=== PATIENT | female | born 1945 | race Caucasian/White ===

== ENCOUNTER 2020-06-02 20:56 | Inpatient (IN) ==
[2020-06-03] MEDS ORDERED: Naloxone 0.4 MG/ML INJ IVP PRN (01:09)
[2020-06-03] MEDS: *HR* HYDROmorphone (PF) 1 MG/ML SYRINGE IVP PRN ×3 (02:09→16:23)
[2020-06-03] MEDS: Ringers Solution, Lactated 1,000 ML IVC SCH (02:13)
[2020-06-03] MEDS: Ondansetron ODT 4 MG TAB.RAPDIS SL PRN ×2 (02:13→12:57)
[2020-06-03] MEDS ORDERED: Ketorolac 30 MG/ML VIAL IVP ONE (03:09)
[2020-06-03] MEDS: *HR* OxyCODONE/APAP 7.5/325 TABLET PO PRN (04:06)
[2020-06-03 05:06] LABS: Basophils # 0.1 K/mcL (0.0-0.2); Basophils % 0.3 %; Eosinophils % 0.2 %; Hematocrit 40.3 % (35.3-44.9); Hemoglobin 12.9 g/dL (11.5-15.4); Immature Granulocytes % 0.8 % (0-4); Lymphocytes # 2.2 K/mcL (0.6-4.6); Lymphocytes % 12.2 %; Mean Corpuscular Hemoglobin 27.9 pg (28.0-33.3); Mean Corpuscular Volume 87.2 fL (83.0-100.0); Mean Platelet Volume 9.7 fL (9.4-12.4); Monocytes # 1.9 K/mcL (0.0-1.3); Monocytes % 10.5 %; Neutrophils # 13.9 K/mcL (1.6-8.9); Platelet Count 305 K/mcL (140-400); Red Blood Count 4.62 M/mcL (3.82-4.97); Red Cell Distribution Width 13.6 % (11.5-14.5); White Blood Count 18.3 K/mcL (4.3-11.1)
[2020-06-03 05:35] LABS: INR 1.2; Prothrombin Time 14.2 Seconds (9.4-12.1)
[2020-06-03 05:37] LABS: Alanine Aminotransferase 9 Units/L (7-52); Albumin 3.8 g/dL (3.5-5.7); Albumin/Globulin Ratio 1.5 (1.1-2.2); Alkaline Phosphatase 61 Units/L (34-104); Aspartate Amino Transferase 11 Units/L (13-39); BUN/Creatinine Ratio 22 (6-26); Bilirubin,Total 0.6 mg/dL (0.3-1.0); Blood Urea Nitrogen 17 mg/dL (8-23); Calcium 8.9 mg/dL (8.6-10.3); Carbon Dioxide 25 mEq/L (23-29); Chloride 100 mEq/L (98-107); Chol/HDL Ratio 4.7 (0-4.9); Cholesterol 269 mg/dL (< 200); Globulin 2.6 g/dL (2.4-3.5); Glucose 85 mg/dL (70-105); HDL Cholesterol 57 mg/dL (40-59); LDL Cholesterol,Calculated 195 mg/dL (< 100); Lipase 1713 Units/L (11-82); Magnesium 1.8 mg/dL (1.6-2.6); Osmolality,Calculated 279 (280-300); Phosphorous 3.1 mg/dL (2.7-4.5); Potassium 3.4 mEq/L (3.5-5.1); Sodium 134 mEq/L (136-145); Total Protein 6.4 g/dL (6.4-8.9); Triglycerides 85 mg/dL (< 150); eGFR For African Americans > 60 (> 60); eGFR For Non-African Americans > 60 (> 60)
[2020-06-03] MEDS ORDERED: 0.9 % Sodium Chloride 1,000 ML IVC ONE ×2 (05:48→10:23)
[2020-06-03] MEDS ORDERED: Potassium Chloride 40 MEQ, Lidocaine 1% 2 ML in 0.9 % Sodium Chloride 500 ML IVPB ONE (05:51)
[2020-06-03] MEDS: Piperacillin/Tazobactam 3.375 GM in 0.9 % Sodium Chloride Mini Bag 100 ML IVPB SCH ×2 (08:15→16:23)
[2020-06-03] MEDS: Acetaminophen 325 MG TABLET PO PRN (08:15)
[2020-06-03] MEDS: tiZANidine 4 MG TABLET PO SCH ×3 (08:16→21:47)
[2020-06-03] MEDS: DilTIAZem CD (24hr) 240 MG CAP.ER.24H PO SCH (08:54)
[2020-06-03] MEDS: Ketorolac 30 MG/ML VIAL IVP PRN ×2 (11:01→21:47)
[2020-06-03] MEDS: *HR* Heparin 5,000 UNIT/ML VIAL SQ SCH (17:57)
[2020-06-04] MEDS: *HR* OxyCODONE/APAP 7.5/325 TABLET PO PRN ×4 (00:52→20:57)
[2020-06-04] MEDS: Piperacillin/Tazobactam 3.375 GM in 0.9 % Sodium Chloride Mini Bag 100 ML IVPB SCH ×2 (00:53→08:14)
[2020-06-04] MEDS ORDERED: Hyoscyamine SL 0.125 MG TAB.SUBL SL ONE (02:19)
[2020-06-04] MEDS: Ondansetron ODT 4 MG TAB.RAPDIS SL PRN (02:33)
[2020-06-04] MEDS: *HR* Heparin 5,000 UNIT/ML VIAL SQ SCH ×2 (05:37→18:02)
[2020-06-04] MEDS: Ketorolac 30 MG/ML VIAL IVP PRN (05:37)
[2020-06-04 05:55] LABS: Basophils % 0.2 %; Eosinophils # 0.1 K/mcL (0.0-0.6); Eosinophils % 0.3 %; Hematocrit 34.8 % (35.3-44.9); Hemoglobin 11.2 g/dL (11.5-15.4); Immature Granulocytes % 0.5 % (0-4); Lymphocytes # 2.7 K/mcL (0.6-4.6); Lymphocytes % 14.1 %; Mean Corpuscular HGB Conc 32.2 g/dL (31.6-35.5); Mean Corpuscular Hemoglobin 28.6 pg (28.0-33.3); Mean Corpuscular Volume 88.8 fL (83.0-100.0); Mean Platelet Volume 9.9 fL (9.4-12.4); Monocytes # 2.5 K/mcL (0.0-1.3); Monocytes % 13.4 %; Neutrophils # 13.5 K/mcL (1.6-8.9); Platelet Count 238 K/mcL (140-400); Red Blood Count 3.92 M/mcL (3.82-4.97); Red Cell Distribution Width 13.9 % (11.5-14.5); Segmented Neutrophils % 71.5 %; White Blood Count 18.9 K/mcL (4.3-11.1)
[2020-06-04 06:13] LABS: Alanine Aminotransferase 9 Units/L (7-52); Albumin 3.6 g/dL (3.5-5.7); Albumin/Globulin Ratio 1.4 (1.1-2.2); Alkaline Phosphatase 51 Units/L (34-104); Aspartate Amino Transferase 13 Units/L (13-39); BUN/Creatinine Ratio 21 (6-26); Bilirubin,Total 0.6 mg/dL (0.3-1.0); Blood Urea Nitrogen 17 mg/dL (8-23); Calcium 8.9 mg/dL (8.6-10.3); Carbon Dioxide 25 mEq/L (23-29); Chloride 104 mEq/L (98-107); Globulin 2.5 g/dL (2.4-3.5); Glucose 86 mg/dL (70-105); Osmolality,Calculated 279 (280-300); Potassium 3.5 mEq/L (3.5-5.1); Sodium 134 mEq/L (136-145); Total Protein 6.1 g/dL (6.4-8.9); eGFR For African Americans > 60 (> 60); eGFR For Non-African Americans > 60 (> 60)
[2020-06-04] MEDS: tiZANidine 4 MG TABLET PO SCH ×3 (08:14→20:57)
[2020-06-04] MEDS: DilTIAZem CD (24hr) 240 MG CAP.ER.24H PO SCH (08:14)
[2020-06-04 08:58] LABS: Lipase 775 Units/L (11-82)
[2020-06-04] MEDS: Ringers Solution, Lactated 1,000 ML IVC SCH ×3 (09:11→19:40)
[2020-06-04] MEDS: Acetaminophen 325 MG TABLET PO PRN (22:12)
[2020-06-05] MEDS: Ondansetron ODT 4 MG TAB.RAPDIS SL PRN ×2 (01:11→09:39)
[2020-06-05] MEDS ORDERED: *HR* HYDROmorphone (PF) 1 MG/ML SYRINGE IVP ONE (01:24)
[2020-06-05 02:25] LABS: Hematocrit 30.6 % (35.3-44.9); Hemoglobin 9.8 g/dL (11.5-15.4); Immature Granulocytes % 0.5 % (0-4); Lymphocytes % 12.8 %; Mean Corpuscular Hemoglobin 28.6 pg (28.0-33.3); Mean Corpuscular Volume 89.2 fL (83.0-100.0); Mean Platelet Volume 10.2 fL (9.4-12.4); Monocytes % 12.4 %; Platelet Count 196 K/mcL (140-400); Red Blood Count 3.43 M/mcL (3.82-4.97); Red Cell Distribution Width 14.1 % (11.5-14.5); Segmented Neutrophils % 73.2 %; White Blood Count 17.9 K/mcL (4.3-11.1)
[2020-06-05 02:26] LABS: Basophils # 0.1 K/mcL (0.0-0.2); Basophils % 0.3 %; Eosinophils # 0.1 K/mcL (0.0-0.6); Eosinophils % 0.8 %; Lymphocytes # 2.3 K/mcL (0.6-4.6); Monocytes # 2.2 K/mcL (0.0-1.3); Neutrophils # 13.1 K/mcL (1.6-8.9)
[2020-06-05 02:38] LABS: Albumin 3.3 g/dL (3.5-5.7); Albumin/Globulin Ratio 1.4 (1.1-2.2); Bilirubin,Total 0.5 mg/dL (0.3-1.0); Calcium 8.4 mg/dL (8.6-10.3); Globulin 2.4 g/dL (2.4-3.5); Potassium 3.4 mEq/L (3.5-5.1); Total Protein 5.7 g/dL (6.4-8.9)
[2020-06-05] MEDS: Ringers Solution, Lactated 1,000 ML IVC SCH ×3 (02:40→18:35)
[2020-06-05] MEDS: *HR* Heparin 5,000 UNIT/ML VIAL SQ SCH ×2 (05:17→17:20)
[2020-06-05] MEDS: *HR* OxyCODONE/APAP 7.5/325 TABLET PO PRN (06:40)
[2020-06-05] MEDS ORDERED: *HR* OxyCODONE/APAP 7.5/325 TABLET PO PRN (07:57)
[2020-06-05] MEDS: tiZANidine 4 MG TABLET PO SCH ×3 (09:32→20:44)
[2020-06-05] MEDS: DilTIAZem CD (24hr) 240 MG CAP.ER.24H PO SCH (09:32)
[2020-06-05] MEDS: Acetaminophen 325 MG TABLET PO PRN (20:48)
[2020-06-05 23:19] LABS: Bilirubin,Urine Negative (Negative); Blood,Urine Negative (Negative); Clarity,Urine Clear (Clear); Color,Urine Yellow (Yellow); Glucose,Urine (UA) Normal (Normal); Hyaline Casts,Urine Few per lpf (None Seen); Ketones,Urine Negative (Negative); Leukocyte Esterase,Urine Negative (Negative); Mucus,Urine Few per lpf (None-Few); Nitrite,Urine Negative (Negative); Protein,Urine 50 mg/dL (Neg-Trace); RBC,Urine 0-3 per hpf (0-3); Squamous Epithelial Cell,Urine Few per hpf (None-Few)
[2020-06-06] MEDS: Ringers Solution, Lactated 1,000 ML IVC SCH ×4 (00:14→13:57)
[2020-06-06] MEDS ORDERED: D5% in Water 1,000 ML IVC SCH (00:15)
[2020-06-06 01:49] LABS: Basophils % 0.2 %; Eosinophils # 0.1 K/mcL (0.0-0.6); Eosinophils % 0.6 %; Hematocrit 28.9 % (35.3-44.9); Immature Granulocytes % 0.8 % (0-4); Lymphocytes # 1.5 K/mcL (0.6-4.6); Lymphocytes % 9.3 %; Mean Corpuscular HGB Conc 31.1 g/dL (31.6-35.5); Mean Corpuscular Hemoglobin 27.7 pg (28.0-33.3); Mean Corpuscular Volume 88.9 fL (83.0-100.0); Mean Platelet Volume 10.3 fL (9.4-12.4); Monocytes # 1.8 K/mcL (0.0-1.3); Monocytes % 10.8 %; Neutrophils # 12.9 K/mcL (1.6-8.9); Platelet Count 189 K/mcL (140-400); Red Blood Count 3.25 M/mcL (3.82-4.97); Red Cell Distribution Width 13.8 % (11.5-14.5); Segmented Neutrophils % 78.3 %; White Blood Count 16.5 K/mcL (4.3-11.1)
[2020-06-06 02:07] LABS: Alanine Aminotransferase 12 Units/L (7-52); Albumin 3.3 g/dL (3.5-5.7); Albumin/Globulin Ratio 1.3 (1.1-2.2); Alkaline Phosphatase 52 Units/L (34-104); Aspartate Amino Transferase 15 Units/L (13-39); BUN/Creatinine Ratio 20 (6-26); Bilirubin,Total 0.6 mg/dL (0.3-1.0); Blood Urea Nitrogen 16 mg/dL (8-23); Calcium 8.6 mg/dL (8.6-10.3); Carbon Dioxide 24 mEq/L (23-29); Chloride 102 mEq/L (98-107); Globulin 2.5 g/dL (2.4-3.5); Glucose 77 mg/dL (70-105); Osmolality,Calculated 272 (280-300); Potassium 3.6 mEq/L (3.5-5.1); Sodium 131 mEq/L (136-145); Total Protein 5.8 g/dL (6.4-8.9); eGFR For African Americans > 60 (> 60); eGFR For Non-African Americans > 60 (> 60)
[2020-06-06] MEDS: tiZANidine 4 MG TABLET PO SCH ×3 (07:32→20:36)
[2020-06-06] MEDS: DilTIAZem CD (24hr) 240 MG CAP.ER.24H PO SCH (07:32)
[2020-06-06] MEDS: Piperacillin/Tazobactam 3.375 GM in 0.9 % Sodium Chloride Mini Bag 100 ML IVPB SCH ×3 (10:18→23:06)
[2020-06-06] MEDS: Ondansetron ODT 4 MG TAB.RAPDIS SL PRN (23:05)
[2020-06-07] MEDS: Ringers Solution, Lactated 1,000 ML IVC SCH ×2 (00:47→01:28)
[2020-06-07] MEDS: DilTIAZem CD (24hr) 240 MG CAP.ER.24H PO SCH (07:56)
[2020-06-07] MEDS: Piperacillin/Tazobactam 3.375 GM in 0.9 % Sodium Chloride Mini Bag 100 ML IVPB SCH ×2 (07:56→15:43)
[2020-06-07] MEDS: tiZANidine 4 MG TABLET PO SCH ×3 (07:56→20:35)
[2020-06-07 08:23] LABS: Basophils % 0.2 %; Eosinophils # 0.1 K/mcL (0.0-0.6); Eosinophils % 0.5 %; Hematocrit 30.3 % (35.3-44.9); Hemoglobin 9.8 g/dL (11.5-15.4); Immature Granulocytes % 0.7 % (0-4); Lymphocytes # 1.6 K/mcL (0.6-4.6); Lymphocytes % 7.7 %; Mean Corpuscular HGB Conc 32.3 g/dL (31.6-35.5); Mean Corpuscular Hemoglobin 28.7 pg (28.0-33.3); Mean Corpuscular Volume 88.6 fL (83.0-100.0); Mean Platelet Volume 9.8 fL (9.4-12.4); Monocytes # 2.7 K/mcL (0.0-1.3); Monocytes % 13.4 %; Neutrophils # 15.7 K/mcL (1.6-8.9); Platelet Count 253 K/mcL (140-400); Red Blood Count 3.42 M/mcL (3.82-4.97); Red Cell Distribution Width 13.9 % (11.5-14.5); Segmented Neutrophils % 77.5 %; White Blood Count 20.2 K/mcL (4.3-11.1)
[2020-06-07 08:30] LABS: BUN/Creatinine Ratio 14 (6-26); Blood Urea Nitrogen 10 mg/dL (8-23); Calcium 9.3 mg/dL (8.6-10.3); Carbon Dioxide 25 mEq/L (23-29); Chloride 100 mEq/L (98-107); Glucose 77 mg/dL (70-105); Magnesium 1.5 mg/dL (1.6-2.6); Osmolality,Calculated 274 (280-300); Phosphorous 2.3 mg/dL (2.7-4.5); Potassium 3.4 mEq/L (3.5-5.1); Sodium 133 mEq/L (136-145); eGFR For African Americans > 60 (> 60); eGFR For Non-African Americans > 60 (> 60)
[2020-06-07 08:31] LABS: % Iron Saturation 6 % (15-50); Iron 15 mcg/dL (50-170); Transferrin 181 mg/dL (203-362)
[2020-06-07 08:49] LABS: Ferritin 160 ng/mL (10-120)
[2020-06-07] MEDS: Ondansetron ODT 4 MG TAB.RAPDIS SL PRN (20:09)
[2020-06-07 20:10] LABS: Adenovirus Not Detected (Not Detect); Coronavirus 229E Not Detected (Not Detect); Coronavirus HKU1 Not Detected (Not Detect); Coronavirus NL63 Not Detected (Not Detect); Coronavirus OC43 Not Detected (Not Detect); Human Metapneumovirus Not Detected (Not Detect); Human Rhinovirus/Enterovirus Not Detected (Not Detect); Influenza A Subtype 2009 H1 Not Detected (Not Detect); SARS-CoV-2 Not Detected (Not Detect)
[2020-06-07 20:11] LABS: Bordetella Pertussis Not Detected (Not Detect); Chlamydophila pneumoniae Not Detected (Not Detect); Influenza B Not Detected (Not Detect); Mycoplasma pneumoniae Not Detected (Not Detect); Parainfluenza Virus 1 Not Detected (Not Detect); Parainfluenza Virus 2 Not Detected (Not Detect); Parainfluenza Virus 3 Not Detected (Not Detect); Parainfluenza Virus 4 Not Detected (Not Detect); Respiratory Syncytial Virus Not Detected (Not Detect)
[2020-06-08] MEDS: Piperacillin/Tazobactam 3.375 GM in 0.9 % Sodium Chloride Mini Bag 100 ML IVPB SCH ×3 (00:57→15:09)
[2020-06-08] MEDS: tiZANidine 4 MG TABLET PO SCH ×3 (07:59→21:20)
[2020-06-08] MEDS: DilTIAZem CD (24hr) 240 MG CAP.ER.24H PO SCH (07:59)
[2020-06-08 10:22] LABS: Basophils % 0.2 %; Eosinophils # 0.1 K/mcL (0.0-0.6); Eosinophils % 0.7 %; Hematocrit 29.7 % (35.3-44.9); Hemoglobin 9.4 g/dL (11.5-15.4); Immature Granulocytes % 1.2 % (0-4); Lymphocytes # 1.3 K/mcL (0.6-4.6); Lymphocytes % 7.2 %; Mean Corpuscular HGB Conc 31.6 g/dL (31.6-35.5); Mean Corpuscular Hemoglobin 27.8 pg (28.0-33.3); Mean Corpuscular Volume 87.9 fL (83.0-100.0); Mean Platelet Volume 9.6 fL (9.4-12.4); Monocytes # 2.4 K/mcL (0.0-1.3); Monocytes % 13.5 %; Neutrophils # 13.5 K/mcL (1.6-8.9); Platelet Count 268 K/mcL (140-400); Red Blood Count 3.38 M/mcL (3.82-4.97); Red Cell Distribution Width 14.2 % (11.5-14.5); Segmented Neutrophils % 77.2 %; White Blood Count 17.4 K/mcL (4.3-11.1)
[2020-06-08 10:37] LABS: Calcium 9.1 mg/dL (8.6-10.3); Magnesium 1.9 mg/dL (1.6-2.6); Phosphorous 3.4 mg/dL (2.7-4.5); Potassium 3.6 mEq/L (3.5-5.1)
[2020-06-08] MEDS ORDERED: tiZANidine 4 MG TABLET PO ONE (10:54)
[2020-06-08 11:05] LABS: Folate 9.4 ng/mL (3.0-16.0)
[2020-06-08] MEDS ORDERED: *HR* HYDROmorphone (PF) 1 MG/ML SYRINGE IVP ONE (11:36)
[2020-06-08 12:36] LABS: Troponin I 0.03 ng/mL (< 0.04)
[2020-06-09] MEDS: Piperacillin/Tazobactam 3.375 GM in 0.9 % Sodium Chloride Mini Bag 100 ML IVPB SCH ×3 (03:18→20:42)
[2020-06-09 10:18] LABS: Basophils % 0.2 %; Eosinophils # 0.1 K/mcL (0.0-0.6); Eosinophils % 0.6 %; Hematocrit 26.7 % (35.3-44.9); Hemoglobin 8.5 g/dL (11.5-15.4); Immature Granulocytes % 0.9 % (0-4); Lymphocytes # 1.4 K/mcL (0.6-4.6); Lymphocytes % 10.4 %; Mean Corpuscular HGB Conc 31.8 g/dL (31.6-35.5); Mean Corpuscular Hemoglobin 28.8 pg (28.0-33.3); Mean Corpuscular Volume 90.5 fL (83.0-100.0); Mean Platelet Volume 9.3 fL (9.4-12.4); Monocytes % 15.7 %; Neutrophils # 9.4 K/mcL (1.6-8.9); Platelet Count 267 K/mcL (140-400); Red Blood Count 2.95 M/mcL (3.82-4.97); Red Cell Distribution Width 14.1 % (11.5-14.5); Segmented Neutrophils % 72.2 %
[2020-06-09] MEDS: DilTIAZem CD (24hr) 240 MG CAP.ER.24H PO SCH (10:23)
[2020-06-09] MEDS: predniSONE 20 MG TABLET PO SCH (10:23)
[2020-06-09] MEDS: tiZANidine 4 MG TABLET PO SCH (10:24)
[2020-06-09 10:41] LABS: BUN/Creatinine Ratio 12 (6-26); Blood Urea Nitrogen 11 mg/dL (8-23); Calcium 8.9 mg/dL (8.6-10.3); Carbon Dioxide 26 mEq/L (23-29); Chloride 100 mEq/L (98-107); Glucose 119 mg/dL (70-105); Lipase 78 Units/L (11-82); Magnesium 1.8 mg/dL (1.6-2.6); Osmolality,Calculated 273 (280-300); Phosphorous 3.4 mg/dL (2.7-4.5); Potassium 3.7 mEq/L (3.5-5.1); Sodium 131 mEq/L (136-145); eGFR For African Americans > 60 (> 60); eGFR For Non-African Americans 59 (> 60)
[2020-06-09] MEDS ORDERED: 0.9 % Sodium Chloride 250 ML IVC ONE (11:12)
[2020-06-09] MEDS ORDERED: Ipratropium Neb 0.5 MG NEBULIZER IH PRN (11:18)
[2020-06-09] MEDS ORDERED: 0.9 % Sodium Chloride 250 ML ONE (11:21)
[2020-06-09] MEDS ORDERED: 0.9 % Sodium Chloride 1,000 ML IVC SCH (12:00)
[2020-06-09] MEDS: polyethylene glycoL 3350 17 GM POWD.PACK PO SCH (12:10)
[2020-06-09 12:50] LABS: VBG HCO3 27 mEq/L (21-27); VBG PCO2 61 mmHg (41-51); VBG PH 7.25 pH Units (7.32-7.42); VBG PO2 30 mmHg (25-50)
[2020-06-09 13:12] LABS: Albumin 3.2 g/dL (3.5-5.7); Albumin/Globulin Ratio 1.2 (1.1-2.2); Bilirubin,Direct 0.1 mg/dL (0.0-0.2); Bilirubin,Indirect 0.2 mg/dL (0.0-1.0); Bilirubin,Total 0.3 mg/dL (0.3-1.0); Globulin 2.6 g/dL (2.4-3.5); Total Protein 5.8 g/dL (6.4-8.9)
[2020-06-09 15:02] LABS: Hematocrit 26.7 % (35.3-44.9); Hemoglobin 8.5 g/dL (11.5-15.4)
[2020-06-09] MEDS: Ipratropium/Albuterol Neb 3 ML IH SCH ×2 (15:57→22:14)
[2020-06-09 19:10] LABS: VBG HCO3 24 mEq/L (21-27); VBG PCO2 47 mmHg (41-51); VBG PH 7.33 pH Units (7.32-7.42); VBG PO2 211 mmHg (25-50)
[2020-06-09] MEDS: Acetaminophen 325 MG TABLET PO PRN (20:41)
[2020-06-09] MEDS: sulfaSALAzine 500 MG TABLET PO SCH (20:42)
[2020-06-09] MEDS: Pantoprazole 40 MG VIAL IVP SCH (20:46)
[2020-06-10] MEDS: Ondansetron ODT 4 MG TAB.RAPDIS SL PRN (01:03)
[2020-06-10] MEDS: Ipratropium/Albuterol Neb 3 ML IH SCH ×4 (04:02→22:30)
[2020-06-10] MEDS: Piperacillin/Tazobactam 3.375 GM in 0.9 % Sodium Chloride Mini Bag 100 ML IVPB SCH ×3 (07:04→21:45)
[2020-06-10 09:14] LABS: Hematocrit 29.3 % (35.3-44.9); Hemoglobin 9.6 g/dL (11.5-15.4); Mean Corpuscular HGB Conc 32.8 g/dL (31.6-35.5); Mean Corpuscular Hemoglobin 28.3 pg (28.0-33.3); Mean Corpuscular Volume 86.4 fL (83.0-100.0); Mean Platelet Volume 10.2 fL (9.4-12.4); Platelet Count 324 K/mcL (140-400); Red Blood Count 3.39 M/mcL (3.82-4.97); Red Cell Distribution Width 13.8 % (11.5-14.5); White Blood Count 17.4 K/mcL (4.3-11.1)
[2020-06-10 09:15] LABS: Neutrophils # 13.1 K/mcL (1.6-8.9); Segmented Neutrophils % 75.4 %
[2020-06-10 09:16] LABS: Basophils % 0.2 %; Eosinophils % 0.2 %; Immature Granulocytes % 1.7 % (0-4); Lymphocytes # 1.7 K/mcL (0.6-4.6); Lymphocytes % 9.7 %; Monocytes # 2.2 K/mcL (0.0-1.3); Monocytes % 12.8 %
[2020-06-10 09:24] LABS: BUN/Creatinine Ratio 14 (6-26); Blood Urea Nitrogen 12 mg/dL (8-23); Calcium 9.3 mg/dL (8.6-10.3); Carbon Dioxide 23 mEq/L (23-29); Chloride 103 mEq/L (98-107); Glucose 91 mg/dL (70-105); Osmolality,Calculated 279 (280-300); Potassium 4.2 mEq/L (3.5-5.1); Sodium 135 mEq/L (136-145); eGFR For African Americans > 60 (> 60); eGFR For Non-African Americans > 60 (> 60)
[2020-06-10] MEDS: polyethylene glycoL 3350 17 GM POWD.PACK PO SCH (10:22)
[2020-06-10] MEDS: predniSONE 20 MG TABLET PO SCH (10:22)
[2020-06-10] MEDS: Pantoprazole 40 MG VIAL IVP SCH (10:22)
[2020-06-10] MEDS: sulfaSALAzine 500 MG TABLET PO SCH ×2 (10:42→21:46)
[2020-06-10] MEDS: Budesonide/Formoterol 160/4.5 1 PUFF INH IH SCH ×2 (10:48→22:30)
[2020-06-10] MEDS ORDERED: Furosemide 40 MG/4 ML VIAL IVP ONE (10:58)
[2020-06-10] MEDS: DilTIAZem CD (24hr) 240 MG CAP.ER.24H PO SCH (12:37)
[2020-06-10 12:54] LABS: VBG HCO3 26 mEq/L (21-27); VBG PCO2 46 mmHg (41-51); VBG PH 7.36 pH Units (7.32-7.42); VBG PO2 178 mmHg (25-50)
[2020-06-10] MEDS: Acetaminophen 325 MG TABLET PO PRN (14:57)
[2020-06-10] MEDS: Metoprolol XL (24 HR) Succ 25 MG TAB.ER.24H PO SCH (17:01)
[2020-06-10] MEDS ORDERED: *HR* Metoprolol 5 MG/5 ML VIAL IVP PRN (17:49)
[2020-06-10] MEDS ORDERED: *HR* OxyCODONE Immed Rel 5 MG TABLET PO ONE (21:44)
[2020-06-11] MEDS: Ipratropium/Albuterol Neb 3 ML IH SCH ×4 (03:59→21:49)
[2020-06-11] MEDS ORDERED: *HR* OxyCODONE Immed Rel 5 MG TABLET PO ONE (04:16)
[2020-06-11] MEDS: Piperacillin/Tazobactam 3.375 GM in 0.9 % Sodium Chloride Mini Bag 100 ML IVPB SCH ×3 (04:17→20:46)
[2020-06-11 04:59] LABS: VBG HCO3 30 mEq/L (21-27); VBG PCO2 55 mmHg (41-51); VBG PH 7.35 pH Units (7.32-7.42); VBG PO2 118 mmHg (25-50)
[2020-06-11 05:05] LABS: Basophils % 0.2 %; Eosinophils % 0.1 %; Hematocrit 28.9 % (35.3-44.9); Hemoglobin 9.2 g/dL (11.5-15.4); Immature Granulocytes % 2.3 % (0-4); Lymphocytes # 1.5 K/mcL (0.6-4.6); Lymphocytes % 9.9 %; Mean Corpuscular HGB Conc 31.8 g/dL (31.6-35.5); Mean Corpuscular Hemoglobin 27.8 pg (28.0-33.3); Mean Corpuscular Volume 87.3 fL (83.0-100.0); Mean Platelet Volume 9.2 fL (9.4-12.4); Monocytes # 1.9 K/mcL (0.0-1.3); Monocytes % 12.7 %; Neutrophils # 11.2 K/mcL (1.6-8.9); Platelet Count 370 K/mcL (140-400); Red Blood Count 3.31 M/mcL (3.82-4.97); Red Cell Distribution Width 13.7 % (11.5-14.5); Segmented Neutrophils % 74.8 %
[2020-06-11 05:31] LABS: BUN/Creatinine Ratio 17 (6-26); Blood Urea Nitrogen 15 mg/dL (8-23); Calcium 9.6 mg/dL (8.6-10.3); Carbon Dioxide 29 mEq/L (23-29); Chloride 101 mEq/L (98-107); Glucose 105 mg/dL (70-105); Osmolality,Calculated 287 (280-300); Potassium 3.9 mEq/L (3.5-5.1); Sodium 138 mEq/L (136-145); eGFR For African Americans > 60 (> 60); eGFR For Non-African Americans > 60 (> 60)
[2020-06-11] MEDS ORDERED: Perflutren Lipid Microsphere 1.3 ML in 0.9 % Sodium Chloride 8.7 ML IVP PRN (09:36)
[2020-06-11] MEDS: Pantoprazole 40 MG VIAL IVP SCH (10:22)
[2020-06-11] MEDS: sulfaSALAzine 500 MG TABLET PO SCH ×2 (10:23→20:47)
[2020-06-11] MEDS: predniSONE 20 MG TABLET PO SCH (10:24)
[2020-06-11] MEDS: Metoprolol XL (24 HR) Succ 25 MG TAB.ER.24H PO SCH (10:24)
[2020-06-11] MEDS: polyethylene glycoL 3350 17 GM POWD.PACK PO SCH (10:24)
[2020-06-11] MEDS: DilTIAZem CD (24hr) 240 MG CAP.ER.24H PO SCH (10:24)
[2020-06-11] MEDS: Budesonide/Formoterol 160/4.5 1 PUFF INH IH SCH ×2 (10:49→21:49)
[2020-06-11] MEDS ORDERED: Furosemide 40 MG/4 ML VIAL IVP ONE (12:48)
[2020-06-11] MEDS: *HR* OxyCODONE/APAP 7.5/325 TABLET PO PRN ×2 (14:16→20:47)
[2020-06-12] MEDS: Ipratropium/Albuterol Neb 3 ML IH SCH ×3 (03:52→15:29)
[2020-06-12] MEDS: Piperacillin/Tazobactam 3.375 GM in 0.9 % Sodium Chloride Mini Bag 100 ML IVPB SCH ×2 (03:56→11:50)
[2020-06-12] MEDS: *HR* OxyCODONE/APAP 7.5/325 TABLET PO PRN ×2 (04:06→11:13)
[2020-06-12 04:30] LABS: Basophils % 0.2 %; Hematocrit 27.9 % (35.3-44.9); Hemoglobin 8.9 g/dL (11.5-15.4); Immature Granulocytes % 2.4 % (0-4); Lymphocytes # 1.6 K/mcL (0.6-4.6); Lymphocytes % 12.8 %; Mean Corpuscular HGB Conc 31.9 g/dL (31.6-35.5); Mean Corpuscular Hemoglobin 27.8 pg (28.0-33.3); Mean Corpuscular Volume 87.2 fL (83.0-100.0); Mean Platelet Volume 8.8 fL (9.4-12.4); Monocytes # 1.9 K/mcL (0.0-1.3); Monocytes % 14.6 %; Neutrophils # 8.9 K/mcL (1.6-8.9); Platelet Count 354 K/mcL (140-400); Red Cell Distribution Width 13.9 % (11.5-14.5); White Blood Count 12.7 K/mcL (4.3-11.1)
[2020-06-12 04:44] LABS: BUN/Creatinine Ratio 20 (6-26); Blood Urea Nitrogen 20 mg/dL (8-23); Calcium 8.9 mg/dL (8.6-10.3); Carbon Dioxide 32 mEq/L (23-29); Chloride 102 mEq/L (98-107); Glucose 121 mg/dL (70-105); Osmolality,Calculated 292 (280-300); Potassium 3.5 mEq/L (3.5-5.1); Sodium 139 mEq/L (136-145); eGFR For African Americans > 60 (> 60); eGFR For Non-African Americans 54 (> 60)
[2020-06-12 05:10] LABS: ABG Base Excess 7 mEq/L (-2 to 3); ABG HCO3 34 mEq/L (21-27); ABG Oxygen Saturation 51 % (95-98); ABG PCO2 63 mmHg (35-45); ABG PH 7.35 pH Units (7.32-7.45); ABG PO2 30 mmHg (85-104); ABG TCO2 36 mEq/L (20-26)
[2020-06-12 07:44] VITALS: BP 185/83
[2020-06-12] MEDS: Metoprolol XL (24 HR) Succ 25 MG TAB.ER.24H PO SCH (07:45)
[2020-06-12] MEDS: DilTIAZem CD (24hr) 240 MG CAP.ER.24H PO SCH (07:45)
[2020-06-12] MEDS: polyethylene glycoL 3350 17 GM POWD.PACK PO SCH (07:45)
[2020-06-12] MEDS: sulfaSALAzine 500 MG TABLET PO SCH (07:45)
[2020-06-12] MEDS: predniSONE 20 MG TABLET PO SCH (07:45)
[2020-06-12] MEDS: Budesonide/Formoterol 160/4.5 1 PUFF INH IH SCH (10:59)
== END 2020-06-12 16:05 | disposition home health service (06) | DRG 871 ==
LOC: 3ANU → SUATTDRO 06-03 00:33 → OBSVTOIN 06-03 00:33
PROVIDERS: ADMIT Student in an Organized Health Care Education/Training Program; ATTEND Internal Medicine